=== PATIENT | male | born 1965 | race African-American/Black ===

== ENCOUNTER 2018-03-08 08:51 | Inpatient (IN) | payer OTHER ==
[2018-03-08 10:09] VITALS: BMI 23.3
[2018-03-08] MEDS ORDERED: IBUPROFEN 400 MG TABLET (FP) PO PRN (11:58)
[2018-03-08] MEDS ORDERED: MAGNESIUM CITRATE 300 ML BOTTLE PO PRN (11:58)
[2018-03-08] MEDS ORDERED: LOPERAMIDE HCL 2 MG CAPSULE PO PRN (11:58)
[2018-03-08] MEDS ORDERED: hydrOXYzine PAMOATE 50 MG CAPSULE (FP) PO PRN (11:58)
[2018-03-08] MEDS ORDERED: P-EPHED 60MG/TRIPROLIDI 2.5MG TABLET PO PRN (11:58)
[2018-03-08] MEDS ORDERED: guaiFENesin/D-METHORPHAN HB 10 ML UNIT-DOSE CUPS PO PRN (11:58)
[2018-03-08] MEDS ORDERED: ACETAMINOPHEN 325 MG TABLET (FP) PO PRN (11:58)
[2018-03-08] MEDS ORDERED: MAG HYDROX/AL HYDROX/SIMETH 30 ML UNIT-DOSE CUP PO PRN (11:58)
[2018-03-08] MEDS ORDERED: MENTHOL/PHENOL 1 EACH UD MM PRN (11:58)
[2018-03-08] MEDS ORDERED: MAGNESIUM HYDROX 2400MG/30ML ORAL SUSPENSION 30 ML CUP PO PRN (11:58)
[2018-03-08] MEDS ORDERED: NICOTINE POLACRILEX 2 MG GUM BUC PRN (11:58)
[2018-03-08] MEDS ORDERED: chlordiazePOXIDE HCL 25 MG CAPSULE PO PRN (12:00)
--- NOTE | 2018-03-08 12:10 | HP ---
CIWA Score Nausea/Vomitin-No Nausea/No Vomiting Muscle Tremors: 1-None Visible, but [place] Anxiety: 4-Mod. Anxious/Guarded Agitation: 0-Normal Activity Paroxysmal Sweats: 1-Minimal Palms Moist Orientation: 0-Oriented Tacttile Disturbances: 3-Moderate Itch/Numb/Burn Auditory Disturbances: 0-None Visual Disturbances: 0-None Headache: 3-Moderate CIWA-Ar Total Score: 12 - Admission Criteria OASAS Guidelines: Admission for Medically Managed Detox: Requires at least one of the followin. CIWA greater than 12 2. Seizures within the past 24 hours 3. Delirium tremens within the past 24 hours 4. Hallucinations within the past 24 hours 5. Acute intervention needed for co occurring medical disorder 6. Acute intervention needed for co occurring psychiatric disorder 7. Severe withdrawal that cannot be handled at a lower level of care (continued vomiting, continued diarrhea, abnormal vital signs) requiring intravenous medication and/or fluids 8. Admission ROS [facility] Chief Complaint: ETOH WITHDRAWAL SX AND CRACK/COCAINE/THC DEPENDENCE. Allergies/Adverse Reactions: Allergies Allergy/AdvReac Type Severity Reaction Status Date / Time No Known Allergies Allergy Verified 03/08/18 10:18 History of Present Illness: PATIENT PRESENTS WITH ETOH WITHDRAWAL SX AND CRACK COCAINE/THC DEPENDENCE. PATIENT STATES HE STARTED DRINKING AND SMOKING CRACK/THC AT AGE 15. PATIENT DRINKS 1 PINT OF VODKA AND 6 PACK OF BEER DAILY. CRACK/COCAINE AND THC INTAKE VARIES ON INCOME. LAST TIME PATIENT USED ALL SUBSTANCES WAS AT 4 AM THIS MORNING. PATIENT DENIES SEIZURES, BLACK OUTS, FALLS AND BINGE DRINKING. + ETOH INTAKE USUALLY FIRST THING IN THE MORNING BUT CAN VARY. PATIENT DENIES SIGNIFICANT PMH/PSH. +TOBACCO USE SINCE AGE 15. PATIENT DENIES SI/HI AND SUICIDE ATTEMPTS. Exam Limitations: No Limitations - Ebola screening Have you traveled outside of the country in the last 21 days: No Have you had contact with anyone from an Ebola affected area: No Have you been sick,other than usual withdrawal symptoms: No Do you have a fever: No - Review of Systems Constitutional: Changes in sleep EENT: reports: No Symptoms Reported Respiratory: reports: No Symptoms reported Cardiac: reports: No Symptoms Reported GI: reports: Poor Fluid Intake : reports: Frequency Musculoskeletal: reports: No Symptoms Reported Integumentary: reports: Dryness Neuro: reports: Headache, Numbness, Tingling Endocrine: reports: No Symptoms Reported Hematology: reports: No Symptoms Reported Psychiatric: reports: Orientated x3, Anxious Patient History - Patient Medical History Hx Anemia: No Hx Asthma: No Hx Chronic Obstructive Pulmonary Disease (COPD): No Hx Cancer: No Hx Cardiac Disorders: No Hx Congestive Heart Failure: No Hx Hypertension: No Hx Hypercholesterolemia: No Hx Pacemaker: No HX Cerebrovascular Accident: No Hx Seizures: No Hx Diabetes: No Hx Gastrointestinal Disorders: No Hx Liver Disease: No Hx Genitourinary Disorders: No Hx Sexually Transmitted Disorders: No Hx Renal Disease (ESRD): No Hx Thyroid Disease: No Hx Human Immunodeficiency Virus (HIV): No (REFUSED TESTING) Hx Hepatitis C: No Hx Depression: No Hx Suicide Attempt: No Hx Bipolar Disorder: No Hx Schizophrenia: No - Patient Surgical History Past Surgical History: No Hx Neurologic Surgery: No Hx Cataract Extraction: No Hx Cardiac Surgery: No Hx Lung Surgery: No Hx Breast Surgery: No Hx Breast Biopsy: No Hx Abdominal Surgery: No Hx Appendectomy: No Hx Cholecystectomy: No Hx Genitourinary Surgery: No Hx Orthopedic Surgery: No Anesthesia Reaction: No - PPD History Previous Implant?: Yes Documented Results: Positive w/o proof Results: TX FOR EXPOSURE PPD to be Administered?: No - Smoking Cessation Smoking history: Current every day smoker Have you smoked in the past 12 months: Yes Aproximately how many cigarettes per day: 10 Hx Chewing Tobacco Use: No Initiated information on smoking cessation: Yes 'Breaking Loose' booklet given: 03/08/18 - Substance & Tx. History Hx Alcohol Use: Yes Hx Substance Use: Yes Substance Use Type: Alcohol, Cocaine, Marijuana Hx Substance Use Treatment: No - Substances Abused Cocaine Route: Smoking Frequency: Daily Amount used: $100 Age of first use: 20 Date of Last Use: 03/08/18 Marijuana/Hashish Route: Smoking Frequency: Daily Amount used: $20 Age of first use: 15 Date of Last Use: 03/06/18 Alcohol Route: Oral Frequency: Daily Amount used: 1- 6 PACKS BEER (16 OUNCES),I PINT OF VODKA Age of first use: 15 Date of Last Use: 03/08/18 Family Disease History - Family Disease History Family History: Denies Admission Physical Exam BHS - Vital Signs Vital Signs: Vital Signs - 24 hr 01/29/19 10:03 Temperature 97.2 F L Pulse Rate 69 Respiratory 16 Rate Blood Pressure 92/62 - Physical General Appearance: Yes: Appropriately Dressed, Tremorous (MILD TREMORS OF HAND FELT), Anxious HEENTM: Yes: EOMI, Hearing grossly Normal, Normocephalic, Normal Voice, DEBRA, Pharynx Normal, Other (+REDNESS OF SCLERA OF OU) Respiratory: Yes: Chest Non-Tender, Lungs Clear, Normal Breath Sounds, No Respiratory Distress, No Accessory Muscle Use Neck: Yes: No masses,lesions,Nodules, Supple, Trachea in good position Breast: Yes: Breast Exam Deferred Cardiology: Yes: Regular Rhythm, Regular Rate, S1, S2 Abdominal: Yes: Normal Bowel Sounds, Non Tender, Soft Genitourinary: Yes: Frequency (DUE TO ETOH INTAKE) Back: Yes: Normal Inspection Musculoskeletal: Yes: full range of Motion, Gait Steady Extremities: Yes: Normal Inspection, Normal Range of Motion, Non-Tender, Tremors (MILD TREMORS FELT) Neurological: Yes: project surveyor II-XII NML intact, Fully Oriented, Alert, Motor Strength 5/5, Other (ANXIOUS) Integumentary: Yes: Normal Color, Dry, Warm Lymphatic: Yes: Within Normal Limits - Diagnostic (1) Alcohol dependence with uncomplicated withdrawal Current Visit: Yes Status: Acute (2) Cocaine dependence Current Visit: Yes Status: Chronic Qualifiers: Substance use status: uncomplicated Qualified Code(s): F14.20 - Cocaine dependence, uncomplicated (3) Tobacco use disorder Current Visit: Yes Status: Chronic (4) Marijuana dependence Current Visit: Yes Status: Chronic Cleared for Admission [facility] - Detox or Rehab [facility] Level of Care: Medically Managed Detox Regimen/Protocol: Librium [facility] Breath Alcohol Content Breath Alcohol Content: 0 Urine Drug Screen - Results Drug Screen Negative: No Urine Drug Screen Results: THC-Marijuana, LACHO-Cocaine
--- NOTE | 2018-03-08 15:51 | EKG ---
Test Reason : Blood Pressure : / mmHG Vent. Rate : 076 BPM Atrial Rate : 076 BPM P-R Int : 160 ms QRS Dur : 102 ms QT Int : 374 ms P-R-T Axes : 069 067 016 degrees QTc Int : 420 ms SINUS RHYTHM WITH SINUS ARRHYTHMIA WITH OCCASIONAL PREMATURE VENTRICULAR COMPLEXES NONSPECIFIC T WAVE ABNORMALITY ABNORMAL ECG NO PREVIOUS ECGS AVAILABLE Confirmed by Denny Saldaña ([id number]) on 03/08/2018 3:51:04 PM Referred By: Confirmed By:Denny Saldaña
[2018-03-08] MEDS: chlordiazePOXIDE HCL 25 MG CAPSULE PO SCH ×2 (17:22→22:59)
[2018-03-08] MEDS ORDERED: MELATONIN 5 MG TABLETS PO PRN (22:00)
[2018-03-08] MEDS: THIAMINE HCL 100 MG TABLET (FP) PO SCH (22:59)
[2018-03-08 23:51] LABS: URINE APPEARANCE CLEAR; URINE BILIRUBIN NEGATIVE (<2.0 mg/dL); URINE COLOR YELLOW; URINE GLUCOSE (UA) NEGATIVE (NEGATIVE); URINE KETONE NEGATIVE (NEGATIVE); URINE LEUK ESTERASE 1+ (NEGATIVE); URINE NITRITE NEGATIVE (NEGATIVE); URINE PROTEIN 1+ (NEGATIVE)
[2018-03-09 00:33] LABS: EPI CELLS RARE /HPF (FEW); URINE MUCUS RARE
[2018-03-09] MEDS: chlordiazePOXIDE HCL 25 MG CAPSULE PO SCH ×4 (05:51→22:10)
[2018-03-09 10:20] LABS: ALBUMIN 3.5 g/dl (3.4-5.0); ALK PHOS 90 U/L (45-117); ANION GAP 5 MMOL/L (8-16); BILIRUBIN,TOTAL 0.8 mg/dL (0.2-1); BLOOD UREA NITROGEN 13 mg/dL (7-18); CALCIUM 9.1 mg/dL (8.5-10.1); CHLORIDE 103 mmol/L (98-107); CO2 29 mmol/L (21-32); CREATININE 1.2 mg/dL (0.55-1.3); GLUCOSE,RANDOM 82 mg/dL (74-106); POTASSIUM 4.6 mmol/L (3.5-5.1); SGOT/AST 21 U/L (15-37); SGPT/ALT 21 U/L (13-61); SODIUM 138 mmol/L (136-145); TOT PROT 8.4 g/dl (6.4-8.2)
[2018-03-09] MEDS: PRENATAL VITAMINS W/ FOLIC ACID TABLET (FP) PO SCH (10:51)
[2018-03-09] MEDS: NICOTINE 21 MG/24 HOURS TOPICAL PATCH TD SCH (10:51)
--- NOTE | 2018-03-09 11:05 | PN ---
[facility] CIWA - CIWA Score Nausea/Vomitin-Mild Nausea/No Vomiting Muscle Tremors: 2 Anxiety: 3 Agitation: 2 Paroxysmal Sweats: 1-Minimal Palms Moist Orientation: 0-Oriented Tacttile Disturbances: 0-None Auditory Disturbances: 0-None Visual Disturbances: 0-None Headache: 2-Mild CIWA-Ar Total Score: 11 S Progress Note (SOAP) Subjective: mild tremor and sweating otherwise feeling ok Objective: 03/09/18 11:04 Vital Signs Temperature 97.4 F L 03/09/18 09:22 Pulse Rate 75 03/09/18 09:22 Respiratory Rate 20 03/09/18 09:22 Blood Pressure 106/58 L 03/09/18 09:22 O2 Sat by Pulse Oximetry (%) Laboratory Last Values Sodium 138 mmol/L (136-145) 03/09/18 06:00 Potassium 4.6 mmol/L (3.5-5.1) 03/09/18 06:00 Chloride 103 mmol/L (98-107) 03/09/18 06:00 Carbon Dioxide 29 mmol/L (21-32) 03/09/18 06:00 Anion Gap 5 MMOL/L (8-16) L 03/09/18 06:00 BUN 13 mg/dL (7-18) 03/09/18 06:00 Creatinine 1.2 mg/dL (0.55-1.3) 03/09/18 06:00 Creat Clearance w eGFR > 60 (>60) 03/09/18 06:00 Random Glucose 82 mg/dL (74-106) 03/09/18 06:00 Calcium 9.1 mg/dL (8.5-10.1) 03/09/18 06:00 Total Bilirubin 0.8 mg/dL (0.2-1) 03/09/18 06:00 AST 21 U/L (15-37) 03/09/18 06:00 ALT 21 U/L (13-61) 03/09/18 06:00 Alkaline Phosphatase 90 U/L (45-117) 03/09/18 06:00 Total Protein 8.4 g/dl (6.4-8.2) H 03/09/18 06:00 Albumin 3.5 g/dl (3.4-5.0) 03/09/18 06:00 Urine Color Yellow 03/08/18 23:23 Urine Appearance Clear 03/08/18 23:23 Urine pH 6.0 (5.0-8.0) 03/08/18 23:23 Ur Specific [place] 1.024 (1.010-1.035) 03/08/18 23:23 Urine Protein 1+ (NEGATIVE) H 03/08/18 23:23 Urine Glucose (UA) Negative (NEGATIVE) 03/08/18 23:23 Urine Ketones Negative (NEGATIVE) 03/08/18 23:23 Urine Blood Negative (NEGATIVE) 03/08/18 23:23 Urine Nitrite Negative (NEGATIVE) 03/08/18 23:23 Urine Bilirubin Negative (<2.0 mg/dL) 03/08/18 23:23 Urine Urobilinogen 2.0 mg/dL (0.2-1.0) 03/08/18 23:23 Ur Leukocyte Esterase 1+ (NEGATIVE) H 03/08/18 23:23 Urine WBC (Auto) 52 /hpf (3-5) 03/08/18 23:23 Urine RBC (Auto) 2 /hpf (0-3) 03/08/18 23:23 Ur Epithelial Cells Rare /HPF (FEW) 03/08/18 23:23 Urine Mucus Rare 03/08/18 23:23 lab noted uti Assessment: 03/09/18 11:05 withdrawal sx Plan: continue detox
[2018-03-09] MEDS: SULFAMETHOXAZOLE/TRIMETHOPRIM 800MG/160MG D.S. TABLET PO SCH ×2 (11:35→22:10)
[2018-03-09 12:11] LABS: HEMATOCRIT 40.7 % (35.4-49); HEMOGLOBIN 14.2 GM/dL (11.7-16.9); MCH 35.2 pg (25.7-33.7); MCHC 34.8 g/dl (32.0-35.9); MEAN CELL VOLUME 101.2 fl (80-96); MEAN PLT VOLUME 7.5 fl (7.5-11.1); PLATELET COUNT 386 K/MM3 (134-434); RBC 4.02 M/mm3 (4.00-5.60); RDW 13.8 % (11.9-15.9); WHITE BLOOD COUNT 4.1 K/mm3 (4.0-10.0)
--- NOTE | 2018-03-09 14:55 | EKG ---
Test Reason : Blood Pressure : / mmHG Vent. Rate : 077 BPM Atrial Rate : 077 BPM P-R Int : 142 ms QRS Dur : 096 ms QT Int : 354 ms P-R-T Axes : 070 066 015 degrees QTc Int : 400 ms NORMAL SINUS RHYTHM POSSIBLE LEFT ATRIAL ENLARGEMENT BORDERLINE ECG WHEN COMPARED WITH ECG OF 08-MAR-2018 13:16, PREMATURE VENTRICULAR COMPLEXES ARE NO LONGER PRESENT NONSPECIFIC T WAVE ABNORMALITY NO LONGER EVIDENT IN LATERAL LEADS Confirmed by BUSHRA WOOD, OSMANI ([id number]) on 03/09/2018 2:55:10 PM Referred By: Confirmed By:OSMANI TOMLINSON MD
[2018-03-09] MEDS: THIAMINE HCL 100 MG TABLET (FP) PO SCH (22:10)
[2018-03-10] MEDS: chlordiazePOXIDE HCL 25 MG CAPSULE PO SCH ×2 (06:31→10:40)
[2018-03-10] MEDS: SULFAMETHOXAZOLE/TRIMETHOPRIM 800MG/160MG D.S. TABLET PO SCH ×2 (10:40→22:23)
[2018-03-10] MEDS: PRENATAL VITAMINS W/ FOLIC ACID TABLET (FP) PO SCH (10:40)
[2018-03-10] MEDS: NICOTINE 21 MG/24 HOURS TOPICAL PATCH TD SCH (10:40)
--- NOTE | 2018-03-10 11:55 | PN ---
[facility] CIWA - CIWA Score Nausea/Vomitin-No Nausea/No Vomiting Muscle Tremors: 2 Anxiety: 2 Agitation: 2 Paroxysmal Sweats: 1-Minimal Palms Moist Orientation: 1-Uncertain about Date Tacttile Disturbances: 0-None Auditory Disturbances: 0-None Visual Disturbances: 0-None Headache: 1-Very Mild CIWA-Ar Total Score: 9 S Progress Note (SOAP) Subjective: tremor sweating irritable Objective: 03/10/18 11:54 Vital Signs Temperature 97.0 F L 03/10/18 06:40 Pulse Rate 73 03/10/18 06:40 Respiratory Rate 18 03/10/18 06:40 Blood Pressure 99/55 L 03/10/18 06:40 O2 Sat by Pulse Oximetry (%) Laboratory Last Values WBC 4.1 K/mm3 (4.0-10.0) 03/09/18 06:00 RBC 4.02 M/mm3 (4.00-5.60) 03/09/18 06:00 Hgb 14.2 GM/dL (11.7-16.9) 03/09/18 06:00 Hct 40.7 % (35.4-49) 03/09/18 06:00 MCV 101.2 fl (80-96) H 03/09/18 06:00 MCH 35.2 pg (25.7-33.7) H 03/09/18 06:00 MCHC 34.8 g/dl (32.0-35.9) 03/09/18 06:00 RDW 13.8 % (11.9-15.9) 03/09/18 06:00 Plt Count 386 K/MM3 (134-434) 03/09/18 06:00 MPV 7.5 fl (7.5-11.1) 03/09/18 06:00 Sodium 138 mmol/L (136-145) 03/09/18 06:00 Potassium 4.6 mmol/L (3.5-5.1) 03/09/18 06:00 Chloride 103 mmol/L (98-107) 03/09/18 06:00 Carbon Dioxide 29 mmol/L (21-32) 03/09/18 06:00 Anion Gap 5 MMOL/L (8-16) L 03/09/18 06:00 BUN 13 mg/dL (7-18) 01/30/19 06:00 Creatinine 1.2 mg/dL (0.55-1.3) 03/09/18 06:00 Creat Clearance w eGFR > 60 (>60) 03/09/18 06:00 Random Glucose 82 mg/dL (74-106) 03/09/18 06:00 Calcium 9.1 mg/dL (8.5-10.1) 03/09/18 06:00 Total Bilirubin 0.8 mg/dL (0.2-1) 03/09/18 06:00 AST 21 U/L (15-37) 03/09/18 06:00 ALT 21 U/L (13-61) 03/09/18 06:00 Alkaline Phosphatase 90 U/L (45-117) 03/09/18 06:00 Total Protein 8.4 g/dl (6.4-8.2) H 03/09/18 06:00 Albumin 3.5 g/dl (3.4-5.0) 03/09/18 06:00 Urine Color Yellow 03/08/18 23:23 Urine Appearance Clear 03/08/18 23:23 Urine pH 6.0 (5.0-8.0) 03/08/18 23:23 Ur Specific [place] 1.024 (1.010-1.035) 03/08/18 23:23 Urine Protein 1+ (NEGATIVE) H 03/08/18 23:23 Urine Glucose (UA) Negative (NEGATIVE) 03/08/18 23:23 Urine Ketones Negative (NEGATIVE) 03/08/18 23:23 Urine Blood Negative (NEGATIVE) 03/08/18 23:23 Urine Nitrite Negative (NEGATIVE) 03/08/18 23:23 Urine Bilirubin Negative (<2.0 mg/dL) 03/08/18 23:23 Urine Urobilinogen 2.0 mg/dL (0.2-1.0) 03/08/18 23:23 Ur Leukocyte Esterase 1+ (NEGATIVE) H 03/08/18 23:23 Urine WBC (Auto) 52 /hpf (3-5) 03/08/18 23:23 Urine RBC (Auto) 2 /hpf (0-3) 03/08/18 23:23 Ur Epithelial Cells Rare /HPF (FEW) 03/08/18 23:23 Urine Mucus Rare 01/29/19 23:23 RPR Titer Nonreactive (NONREACTIVE) 03/09/18 06:00 lab noted uti Assessment: 03/10/18 11:55 withdrawal sx Plan: continue detox
[2018-03-10] MEDS: chlordiazePOXIDE 5 MG CAPSULE PO SCH ×2 (17:56→22:23)
[2018-03-10] MEDS: THIAMINE HCL 100 MG TABLET (FP) PO SCH (22:23)
[2018-03-11] MEDS: chlordiazePOXIDE 5 MG CAPSULE PO SCH ×2 (06:00→13:01)
[2018-03-11] MEDS: PRENATAL VITAMINS W/ FOLIC ACID TABLET (FP) PO SCH (10:27)
[2018-03-11] MEDS: NICOTINE 21 MG/24 HOURS TOPICAL PATCH TD SCH (10:27)
[2018-03-11] MEDS: SULFAMETHOXAZOLE/TRIMETHOPRIM 800MG/160MG D.S. TABLET PO SCH ×2 (10:27→22:24)
[2018-03-11] MEDS: chlordiazePOXIDE HCL 10 MG CAPSULE PO SCH ×2 (17:21→22:24)
--- NOTE | 2018-03-11 18:22 | PN ---
BHS Progress Note (SOAP) Subjective: Stomach Cramping, Fatigue. Objective: PATIENT A & O X 3. IN NO ACUTE DISTRESS. 03/11/18 18:22 Vital Signs Temperature 97.8 F 03/11/18 17:18 Pulse Rate 80 03/11/18 17:18 Respiratory Rate 18 03/11/18 17:18 Blood Pressure 103/63 03/11/18 17:18 O2 Sat by Pulse Oximetry (%) Laboratory Tests 03/08/18 03/09/18 03/09/18 23:23 06:00 06:00 WBC 4.1 RBC 4.02 Hgb 14.2 Hct 40.7 MCV 101.2 H MCH 35.2 H MCHC 34.8 RDW 13.8 Plt Count 386 MPV 7.5 Sodium 138 Potassium 4.6 Chloride 103 Carbon Dioxide 29 Anion Gap 5 L BUN 13 Creatinine 1.2 Creat Clearance w eGFR > 60 Random Glucose 82 Calcium 9.1 Total Bilirubin 0.8 AST 21 ALT 21 Alkaline Phosphatase 90 Total Protein 8.4 H Albumin 3.5 Urine Color Yellow Urine Appearance Clear Urine pH 6.0 Ur Specific [place] 1.024 Urine Protein 1+ H Urine Glucose (UA) Negative Urine Ketones Negative Urine Blood Negative Urine Nitrite Negative Urine Bilirubin Negative Urine Urobilinogen 2.0 Ur Leukocyte Esterase 1+ H Urine WBC (Auto) 52 Urine RBC (Auto) 2 Ur Epithelial Cells Rare Urine Mucus Rare RPR Titer 03/09/18 06:00 WBC RBC Hgb Hct MCV MCH MCHC RDW Plt Count MPV Sodium Potassium Chloride Carbon Dioxide Anion Gap BUN Creatinine Creat Clearance w eGFR Random Glucose Calcium Total Bilirubin AST ALT Alkaline Phosphatase Total Protein Albumin Urine Color Urine Appearance Urine pH Ur Specific [place] Urine Protein Urine Glucose (UA) Urine Ketones Urine Blood Urine Nitrite Urine Bilirubin Urine Urobilinogen Ur Leukocyte Esterase Urine WBC (Auto) Urine RBC (Auto) Ur Epithelial Cells Urine Mucus RPR Titer Nonreactive LABS NOTED. Assessment: 03/11/18 18:22 WITHDRAWAL SYMPTOMS. Plan: CONTINUE DETOX. INCREASE DAILY PO FLUID INTAKE.
[2018-03-11] MEDS: THIAMINE HCL 100 MG TABLET (FP) PO SCH (22:23)
[2018-03-12] MEDS: chlordiazePOXIDE HCL 10 MG CAPSULE PO SCH ×2 (06:09→10:25)
[2018-03-12 09:58] VITALS: BP 102/57; PULSE 81; TEMP 98.3
[2018-03-12] MEDS: PRENATAL VITAMINS W/ FOLIC ACID TABLET (FP) PO SCH (10:24)
[2018-03-12] MEDS: SULFAMETHOXAZOLE/TRIMETHOPRIM 800MG/160MG D.S. TABLET PO SCH (10:24)
[2018-03-12] MEDS: NICOTINE 21 MG/24 HOURS TOPICAL PATCH TD SCH (10:25)
--- NOTE | 2018-03-12 20:43 | DS ---
[facility] Detox Discharge Summary Admission Date: 03/08/18 Discharge Date: 03/12/18 - History Present History: Alcohol Dependence, Cannabis Dependence, Cocaine Dependence Additional Comments: PATIENT DECLINED REHAB REFERRAL. PATIENT REFERRED TO [facility] ( [place], [place]) FOR HOUSING AFTERCARE. PATIENT ADVISED TO CONSIDER LOCAL 12- STEP / NA / AA OUTPATIENT SUPPORRT GROUP PROGRAMS FOR AFTERCARE. PRESCRIPTION FOR FOLLOW-UP FOR ANTIBIOTIC ([facility] DS) PRESCRIBED FOR PATIENT WHILE ADMITTED TO DETOX UNIT FOR POSSIBLE UTI SENT TO [facility] ([place], [place]) FOR PATIENT TO INSPECTION AND TESTING SUPERVISOR FOR AFTERCARE. PATIENT ADVISED TO COMPLETE FULL COURSE OF ANTIBIOTIC AFTER PICKING UP AT PHARMACY. PATIENT VERBALIZED UNDERSTANDING OF RECOMMENDATION. PATIENT WAS DISCHARGED FROM DETOX UNIT IN STABLE MEDICAL CONDITION. Pertinent Past History: Tobacco Use Disorder. - Physical Exam Results Vital Signs: Vital Signs Temperature 98.3 F 03/12/18 09:57 Pulse Rate 81 03/12/18 09:57 Respiratory Rate 18 03/12/18 09:57 Blood Pressure 102/57 L 03/12/18 09:57 O2 Sat by Pulse Oximetry (%) Pertinent Admission Physical Exam Findings: WITHDRAWAL SYMPTOMS. Laboratory Tests 03/08/18 03/09/18 03/09/18 23:23 06:00 06:00 WBC 4.1 RBC 4.02 Hgb 14.2 Hct 40.7 MCV 101.2 H MCH 35.2 H MCHC 34.8 RDW 13.8 Plt Count 386 MPV 7.5 Sodium 138 Potassium 4.6 Chloride 103 Carbon Dioxide 29 Anion Gap 5 L BUN 13 Creatinine 1.2 Creat Clearance w eGFR > 60 Random Glucose 82 Calcium 9.1 Total Bilirubin 0.8 AST 21 ALT 21 Alkaline Phosphatase 90 Total Protein 8.4 H Albumin 3.5 Urine Color Yellow Urine Appearance Clear Urine pH 6.0 Ur Specific [place] 1.024 Urine Protein 1+ H Urine Glucose (UA) Negative Urine Ketones Negative Urine Blood Negative Urine Nitrite Negative Urine Bilirubin Negative Urine Urobilinogen 2.0 Ur Leukocyte Esterase 1+ H Urine WBC (Auto) 52 Urine RBC (Auto) 2 Ur Epithelial Cells Rare Urine Mucus Rare RPR Titer 03/09/18 06:00 WBC RBC Hgb Hct MCV MCH MCHC RDW Plt Count MPV Sodium Potassium Chloride Carbon Dioxide Anion Gap BUN Creatinine Creat Clearance w eGFR Random Glucose Calcium Total Bilirubin AST ALT Alkaline Phosphatase Total Protein Albumin Urine Color Urine Appearance Urine pH Ur Specific [place] Urine Protein Urine Glucose (UA) Urine Ketones Urine Blood Urine Nitrite Urine Bilirubin Urine Urobilinogen Ur Leukocyte Esterase Urine WBC (Auto) Urine RBC (Auto) Ur Epithelial Cells Urine Mucus RPR Titer Nonreactive LABS NOTED. - Treatment Hospital Course: Detox Protocol Followed, Detoxed Safely, Responded well, Discharged Condition Good Patient has Accepted a Rehab Referral to: PT. [facility]; ADVISED TO CONDSIDER LOCAL 12-STEP/NA/AA SUPPORT GROUPS. - Medication Discharge Medications: Ambulatory Orders Sulfamethoxazole/Trimethoprim [Bactrim Ds -] 1 tab PO BID 4 Days #8 tablet 03/12 - Diagnosis (1) Alcohol dependence with uncomplicated withdrawal Status: Acute (2) Cocaine dependence Status: Chronic Qualifiers: Substance use status: uncomplicated Qualified Code(s): F14.20 - Cocaine dependence, uncomplicated (3) Marijuana dependence Status: Chronic (4) Tobacco use disorder Status: Chronic - AMA Did Patient Leave Against Medical Advice: No
== END 2018-03-12 10:45 | disposition home or self-care (01) | DRG 774 ==
LOC: YASAS 08:51 → Y3N 12:26
PROVIDERS: ADMIT Neuromusculoskeletal Medicine & OMM; ATTEND Neuromusculoskeletal Medicine & OMM
PROC: HZ2ZZZZ Detoxification Services for Substance Abuse Treatment (ICD-10-PCS; principal; 2018-03-08)
DX: F10.230 Alcohol dependence with withdrawal, uncomplicated (principal); F14.20 Cocaine dependence, uncomplicated; F12.20 Cannabis dependence, uncomplicated; F17.210 Nicotine dependence, cigarettes, uncomplicated; N39.0 Urinary tract infection, site not specified; Z59.0 Homelessness
CPT/HCPCS: 36415; 71046-TC-FY; 80053; 81003; 81015; 85027; 86593; 93005; 93010